=== PATIENT | female | born 1965 | race Two or more races ===

== ENCOUNTER 2025-05-31 10:39 | Inpatient (IN) | payer SELFPAY ==
[~2025-05-31] VITALS: Ht 165.1 cm; Wt 79.8 kg
[2025-05-31 10:46] VITALS: O2SAT 100
[2025-05-31 15:03] LABS: BASOPHILS % 0.4 % (0.0-2.0); EOSINOPHILS % 0.1 % (0.0-5.0); LYMPHOCYTES % 7.1 % (20.0-50.0); MEAN PLATELET VOLUME 7.1 fl (7.4-10.4); MONOCYTES % 5.4 % (2.0-8.0); NEUTROPHILS % 87.0 % (40.0-76.0); RED BLOOD CELL COUNT 3.00 mill/uL (4.2-5.4); RED CELL DISTRIBUTION WIDTH 21.1 % (11.6-14.6)
[2025-05-31 15:19] LABS: CREATININE 0.7 mg/dL (0.6-1.0)
[2025-05-31 15:20] LABS: PROTEIN TOTAL 7.6 g/dL (6.0-8.3); UREA NITROGEN BLOOD 13 mg/dL (9-23)
[2025-05-31 15:21] LABS: ASPARTATE AMINOTRANSFERASE 10 IU/L (<34)
[2025-05-31 15:22] LABS: BILIRUBIN DIRECT 0.1 mg/dL (<=3.0); BILIRUBIN TOTAL 0.4 mg/dL (0.1-1.0)
[2025-05-31 15:27] LABS: ADD RBC MORPHOLOGY YES; HEMATOCRIT. 18.4 % (36.0-48.0); HEMOGLOBIN. 4.7 g/dL (12.0-16.0); PLATELET 1142 x1000/uL (130-400)
[2025-05-31 16:49] LABS: PLATELET ESTIMATE MARKEDLY INCREASED
[2025-05-31] MEDS: PIPERACILLIN/TAZO 3.375G/50ML 50 ML IV STA (17:47)
[2025-05-31 19:05] LABS: CLARITY URINE CLEAR (CLEAR); GLUCOSE URINE NEGATIVE (NEGATIVE); KETONES URINE 1+ (NEGATIVE); LEUKOCYTE ESTERASE URINE NEGATIVE (NEGATIVE); NITRITE URINE NEGATIVE (NEGATIVE); OCCULT BLOOD URINE NEGATIVE (NEGATIVE); PH URINE 5.5 (4.5-8.0); PROTEIN URINE 2+ (NEGATIVE); SPECIFIC GRAVITY URINE 1.060 (1.005-1.030); UROBILINOGEN URINE 1.0 E.U./dL (0.2-1.0)
[2025-05-31 19:26] LABS: COLOR URINE YELLOW (YELLOW)
[2025-05-31 19:27] LABS: BACTERIA URINE TRACE; MUCUS URINE TRACE /lpf (< = 2+); RBC URINE NONE SEEN /hpf (0-2); SQUAMOUS EPITHELIAL CELL URINE FEW /lpf (RARE/1+); WBC URINE 0-2 /hpf (0-2)
[2025-05-31] MEDS ORDERED: ACETAMINOPHEN 325MG TABLET PO PRN (20:45)
[2025-05-31] MEDS ORDERED: IPRATROPIUM/ALBUTEROL 0.5-3(2.5)MG/3ML NEB HHN PRN (20:45)
[2025-05-31] MEDS ORDERED: GUAIFENESIN 200MG/10ML SUGAR FREE UDC PO PRN (20:45)
[2025-05-31] MEDS ORDERED: DOCUSATE SODIUM 100MG CAPSULE PO PRN (20:45)
[2025-05-31] MEDS ORDERED: ONDANSETRON HCL 4MG/2ML INJ IV PRN (20:45)
[2025-05-31] MEDS: VANCOMYCIN 1G PREMIX 200 ML IV STA (20:56)
[2025-05-31] MEDS: CLONIDINE 0.1MG TABLET PO PRN (21:12)
[2025-05-31] MEDS: POTASSIUM CHLORIDE 20MEQ/PACKET PO NR (21:12)
[2025-05-31] MEDS ORDERED: ACETAMINOPHEN 1000MG/100ML 100 ML IV PRN (21:45)
[2025-05-31] MEDS ORDERED: KETOROLAC 15MG/ML VIAL IV PRN (21:45)
[2025-05-31] MEDS: ACETAMINOPHEN 325MG TABLET PO PRN (23:15)
[2025-05-31 23:29] LABS: INR 1.2
[2025-05-31] MEDS: IOHEXOL-300 100 ML BOTTLE ONE (23:32)
[2025-05-31 23:33] LABS: LACTATE DEHYDROGENASE 138 IU/L (120-246)
[2025-05-31 23:34] LABS: PHOSPHORUS 3.4 mg/dL (2.5-4.9)
[2025-06-01] VITALS (56 sets, daily range): BP systolic 110–169; BP diastolic 72–146; PULSE 72–94; RESP 15–26; TEMP 36.6404–37.6; O2SAT 97–100
[2025-06-01 00:52] LABS: TROPONIN I HIGH SENSITIVITY 18 ng/L (3.0-34)
[2025-06-01] MEDS: PANTOPRAZOLE SODIUM 40 MG/VIAL IV SCH (02:52)
[2025-06-01 04:46] LABS: BASOPHILS % 0.2 % (0.0-2.0); EOSINOPHILS % 1.0 % (0.0-5.0); HEMATOCRIT. 24.1 % (36.0-48.0); HEMOGLOBIN. 7.3 g/dL (12.0-16.0); LYMPHOCYTES % 8.2 % (20.0-50.0); MEAN PLATELET VOLUME 6.8 fl (7.4-10.4); MONOCYTES % 9.5 % (2.0-8.0); NEUTROPHILS % 81.1 % (40.0-76.0); PLATELET 822 x1000/uL (130-400); RED BLOOD CELL COUNT 3.50 mill/uL (4.2-5.4); RED CELL DISTRIBUTION WIDTH 27.8 % (11.6-14.6)
[2025-06-01 04:59] LABS: CREATININE 0.6 mg/dL (0.6-1.0); TRIGLYCERIDE 109 mg/dL (0-150); TROPONIN I HIGH SENSITIVITY 17 ng/L (3.0-34); UREA NITROGEN BLOOD 16 mg/dL (9-23)
[2025-06-01 05:00] LABS: LDL CHOLESTEROL 63 mg/dL (5-100)
[2025-06-01 05:01] LABS: PHOSPHORUS 3.4 mg/dL (2.5-4.9)
[2025-06-01 05:04] LABS: T4 FREE 0.97 ng/dL (0.89-1.76)
[2025-06-01 06:20] LABS: ERYTHROCYTE SEDIMENTATION RATE 84 mm/hr (0-30)
[2025-06-01 07:17] LABS: HEPATITIS A AB IGM NEGATIVE (Negative)
[2025-06-01 07:18] LABS: HEPATITIS B CORE AB IGM NEGATIVE (Negative); HEPATITIS C AB NON REACTIVE (Neg) (Negative)
[2025-06-01] MEDS ORDERED: VANCOMYCIN 1G PREMIX 200 ML IV SCH (09:00)
[2025-06-01] MEDS ORDERED: VANCOMYCIN 1GM/200ML PMX (BAXTER) IV SCH (09:00)
[2025-06-01 10:56] LABS: *AMPHETAMINES SCREEN URINE NEGATIVE (NEGATIVE); *BARBITURATES SCREEN URINE NEGATIVE (NEGATIVE); *BENZODIAZEPINES SCREEN URINE NEGATIVE (NEGATIVE); *COCAINE SCREEN URINE NEGATIVE (NEGATIVE); CANNABINOID URINE SCREEN NEGATIVE (NEGATIVE); ECSTASY MDMA SCREEN URINE NEGATIVE (NEGATIVE); METHADONE URINE SCREEN NEGATIVE (NEGATIVE); OPIATES URINE SCREEN NEGATIVE (NEGATIVE); PHENCYCLIDINE URINE SCREEN NEGATIVE (NEGATIVE)
[2025-06-01] MEDS: SODIUM CHLORIDE 0.9% 1,000 ML IV SCH (11:17)
[2025-06-01] MEDS: VANCOMYCIN 750MG PREMIX 150 ML IV SCH (11:17)
[2025-06-01] MEDS: PIPERACILLIN/TAZO 3.375G/50ML 50 ML IV SCH (13:17)
[2025-06-01] MEDS ORDERED: DIATR MEGLU/DIATRIZOATE SOLN 30ML PO SCH (15:30)
[2025-06-02] VITALS (15 sets, daily range): BP systolic 127–179; BP diastolic 76–115; PULSE 70–88; RESP 13–25; TEMP 36.6–36.9474; O2SAT 97–100
[2025-06-02 06:08] LABS: MUMPS IGG ANTIBODY < 9.0 AU/mL (Immune >10.9)
[2025-06-02 06:09] LABS: HEMATOCRIT. 28.6 % (36.0-48.0); HEMOGLOBIN. 8.5 g/dL (12.0-16.0); MEAN PLATELET VOLUME 7.0 fl (7.4-10.4); PLATELET 815 x1000/uL (130-400); RED BLOOD CELL COUNT 3.88 mill/uL (4.2-5.4); RED CELL DISTRIBUTION WIDTH 28.1 % (11.6-14.6)
[2025-06-02 06:28] LABS: CREATININE 0.5 mg/dL (0.6-1.0); UREA NITROGEN BLOOD 11 mg/dL (9-23)
[2025-06-02 06:30] LABS: PHOSPHORUS 3.0 mg/dL (2.5-4.9)
[2025-06-02 06:39] LABS: FOLIC ACID (FOLATE) SERUM 13.01 ng/mL (>5.38)
[2025-06-02 06:40] LABS: VITAMIN B12 SERUM 271 pg/mL (211-911)
[2025-06-02] MEDS ORDERED: POLYMYXIN B SULFATE 500000 UNITS/VIAL ONE (09:05)
[2025-06-02] MEDS ORDERED: LIDOCAINE HCL 1% 10 MG/ML 10ML VIAL ONE ×2 (09:06→10:03)
[2025-06-02] MEDS ORDERED: BUPIVACAINE HCL/PF 0.5% (5MG/ML) 10ML ONE (09:06)
[2025-06-02 09:07] LABS: HAPTOGLOBIN 543 mg/dL (33-346)
[2025-06-02] MEDS: DEXT 5%/0.45% NACL 500ML 500 ML IV ONE (10:00)
[2025-06-02] MEDS ORDERED: ACETAMINOPHEN 1000MG/100ML 100 ML IV ONE (12:55)
[2025-06-02] MEDS ORDERED: PROPOFOL 200MG/20ML VIAL IV ONE (13:04)
[2025-06-02] MEDS ORDERED: FENTANYL CITRATE/PF 50MCG/ML 2ML VIAL ONE (13:05)
[2025-06-02] MEDS ORDERED: MIDAZOLAM HCL 2 MG/2 ML VIAL ONE (13:06)
[2025-06-02 13:11] LABS: ANTI-JO 1 ABS <0.2 AI (0.0-0.9)
[2025-06-02] MEDS ORDERED: ONDANSETRON HCL 4MG/2ML INJ ONE (13:25)
[2025-06-02] MEDS ORDERED: METOCLOPRAMIDE HCL 10MG/2ML VIAL ONE (13:25)
[2025-06-02] MEDS ORDERED: ONDANSETRON HCL 4MG/2ML INJ IV PRN (13:30)
[2025-06-02] MEDS ORDERED: HYDROMORPHONE HCL/PF 1MG/ML INJ IV PRN (13:30)
[2025-06-02] MEDS: VANCOMYCIN 1.25GM/250ML 250 ML IV SCH (14:00)
[2025-06-02] MEDS: MAGNESIUM 2 G PREMIX 50 ML IV NR ×2 (14:30→14:44)
[2025-06-02 15:01] LABS: LYMPHOCYTES % MANUAL 5.0 % (20.0-60.0); MONOCYTES % MANUAL 6.0 % (2.0-8.0); NEUTROPHILS % MANUAL 89.0 % (45.0-75.0)
[2025-06-02 15:02] LABS: PLATELET ESTIMATE MARKEDLY INCREASED
[2025-06-02] MEDS: DIATR MEGLU/DIATRIZOATE SOLN 30ML PO NR (16:03)
[2025-06-02] MEDS: CYANOCOBALAMIN 1000MCG/ML VIAL IM SCH (17:51)
[2025-06-02] MEDS: AMLODIPINE 5MG TABLET PO SCH (21:13)
[2025-06-02] MEDS: HYDRALAZINE 20MG/ML VIAL IV PRN (23:15)
[2025-06-02] MEDS ORDERED: IOHEXOL-300 100 ML BOTTLE ONE (23:32)
[2025-06-03] VITALS (9 sets, daily range): BP systolic 128–176; BP diastolic 71–115; PULSE 79–95; RESP 16–27; TEMP 35.8–37; O2SAT 95–100
[2025-06-03 06:50] LABS: BASOPHILS % 0.2 % (0.0-2.0); EOSINOPHILS % 0.9 % (0.0-5.0); HEMATOCRIT. 27.1 % (36.0-48.0); HEMOGLOBIN. 8.4 g/dL (12.0-16.0); LYMPHOCYTES % 7.5 % (20.0-50.0); MEAN PLATELET VOLUME 7.0 fl (7.4-10.4); MONOCYTES % 8.2 % (2.0-8.0); NEUTROPHILS % 83.2 % (40.0-76.0); PLATELET 705 x1000/uL (130-400); RED BLOOD CELL COUNT 3.77 mill/uL (4.2-5.4); RED CELL DISTRIBUTION WIDTH 27.9 % (11.6-14.6)
[2025-06-03 07:27] LABS: CREATININE 0.5 mg/dL (0.6-1.0); UREA NITROGEN BLOOD 9 mg/dL (9-23)
[2025-06-03 07:29] LABS: PHOSPHORUS 2.9 mg/dL (2.5-4.9)
[2025-06-03] MEDS ORDERED: POTASSIUM CHLORIDE 40 MEQ in DEXT 5% WATER 230 ML IV ONE (10:00)
[2025-06-03] MEDS: POTASSIUM CHLORIDE 20MEQ TABLET SR PO NR (10:20)
[2025-06-03] MEDS: KCL 20MEQ/100ML X 2 FOR TOTAL KCL 40MEQ/200ML IV SCH (10:22)
[2025-06-03] MEDS: METOCLOPRAMIDE HCL 10MG/2ML VIAL IV SCH (13:54)
[2025-06-03] MEDS: SORBITOL 70% SOLN 30ML PO SCH (14:29)
[2025-06-04] VITALS: BP 156/82; PULSE 87; RESP 19; TEMP 36.3; O2SAT 98
[2025-06-04] MEDS: VANCOMYCIN 1GM PMX (XELLIA) 200 ML IV SCH (00:10)
[2025-06-04 04:27] VITALS: BP 126/57; PULSE 80; RESP 18; TEMP 36.3; O2SAT 100
[2025-06-04 08:38] LABS: CREATININE 0.4 mg/dL (0.6-1.0); UREA NITROGEN BLOOD 7 mg/dL (9-23)
[2025-06-04 08:50] LABS: INR 1.1
[2025-06-04 09:11] LABS: COMPLEMENT C3 117 mg/dL (82-167); COMPLEMENT C4 31 mg/dL (12-38)
[2025-06-04 09:15] LABS: BASOPHILS % 0.5 % (0.0-2.0); EOSINOPHILS % 1.1 % (0.0-5.0); HEMATOCRIT. 25.0 % (36.0-48.0); HEMOGLOBIN. 7.4 g/dL (12.0-16.0); LYMPHOCYTES % 11.8 % (20.0-50.0); MEAN PLATELET VOLUME 6.9 fl (7.4-10.4); MONOCYTES % 11.8 % (2.0-8.0); NEUTROPHILS % 74.8 % (40.0-76.0); PLATELET 640 x1000/uL (130-400); RED BLOOD CELL COUNT 3.42 mill/uL (4.2-5.4); RED CELL DISTRIBUTION WIDTH 29.3 % (11.6-14.6)
[2025-06-04] MEDS ORDERED: SORBITOL 70% SOLN 30ML PO PRN (09:45)
[2025-06-04] MEDS ORDERED: PROPOFOL 200MG/20ML VIAL IV ONE (11:55)
[2025-06-04 12:00] VITALS: BP 119/76; PULSE 94; RESP 16; TEMP 36.4; O2SAT 97
[2025-06-04 13:12] LABS: SJOGRENS ANTI SS-A < 0.2 AI (0.0-0.9); SJOGRENS ANTI SS-B < 0.2 AI (0.0-0.9)
[2025-06-04 16:00] VITALS: BP 117/69; PULSE 93; RESP 17; TEMP 36.1; O2SAT 98
[2025-06-04 20:00] VITALS: BP 174/92; PULSE 84; RESP 20; TEMP 36.3; O2SAT 100
[2025-06-05] VITALS: BP 185/93; PULSE 88; RESP 19; TEMP 36.3; O2SAT 99
[2025-06-05 04:00] VITALS: BP 143/72; PULSE 79; RESP 18; TEMP 36.3; O2SAT 97
[2025-06-05] MEDS ORDERED: LORAZEPAM 2MG/ML UD SYRINGE IV NR (04:00)
[2025-06-05 07:25] LABS: CREATININE 0.5 mg/dL (0.6-1.0); UREA NITROGEN BLOOD < 5 mg/dL (9-23)
[2025-06-05 08:00] VITALS: BP 134/111; PULSE 77; RESP 20; TEMP 36.3; O2SAT 97
[2025-06-05 12:00] VITALS: BP 164/87; PULSE 82; RESP 20; TEMP 36.4; O2SAT 96
[2025-06-05] MEDS: POTASSIUM CHLORIDE 20MEQ TABLET SR PO NR (14:34)
[2025-06-05 16:00] VITALS: BP 170/90; PULSE 94; RESP 19; TEMP 36.6; O2SAT 97
[2025-06-05 19:08] LABS: ANGIOTENSION CONVERTING ENZYME 12 U/L (14-82)
[2025-06-05 20:00] VITALS: BP 130/69; PULSE 88; RESP 18; TEMP 36.6; O2SAT 100
[2025-06-06] VITALS: BP 144/79; PULSE 84; RESP 18; TEMP 36.6; O2SAT 98
[2025-06-06 04:00] VITALS: BP 136/73; PULSE 75; RESP 19; TEMP 36.7; O2SAT 96
[2025-06-06 08:00] VITALS: BP 160/93; PULSE 80; RESP 18; TEMP 36.9; O2SAT 98
[2025-06-06 12:00] VITALS: BP 163/86; PULSE 88; RESP 18; TEMP 36.9; O2SAT 100
[2025-06-06 15:10] LABS: ANTI-MYELOPEROXIDASE AB 0.2 units (0.0-0.9); ANTI-PROTEINASE 3 ABS 0.4 units (0.0-0.9)
[2025-06-06 16:00] VITALS: BP 180/86; PULSE 83; RESP 17; TEMP 37.1; O2SAT 100
[2025-06-06] MEDS: LEVOFLOXACIN 500MG TABLET PO SCH (20:39)
[2025-06-06] MEDS: METRONIDAZOLE 500MG TABLET PO SCH (22:00)
[2025-06-07 08:00] VITALS: BP 158/86; PULSE 95; RESP 18; TEMP 36.6; O2SAT 100
[2025-06-07 10:07] LABS: B HENSELAE IGG Negative titer (Neg:<1:320); B HENSELAE IGM Negative titer (Neg:<1:100); B QUINTANA IGG Negative titer (Neg:<1:320); B QUINTANA IGM Negative titer (Neg:<1:100)
[2025-06-07 12:00] VITALS: BP 165/88; PULSE 98; RESP 18; TEMP 36; O2SAT 100
[2025-06-07] MEDS ORDERED: METR-167 PO (14:47)
[2025-06-07] MEDS ORDERED: LOSA25TA26 PO (14:47)
[2025-06-07] MEDS ORDERED: LEVO-65 PO (14:47)
[2025-06-07] MEDS ORDERED: SULF1TAB48 PO (14:47)
[2025-06-07] MEDS ORDERED: AMLO5TAB88 PO (14:47)
[2025-06-07] MEDS ORDERED: SUCR1TAB30 PO (14:56)
[2025-06-07] MEDS ORDERED: OMEP40CA20 PO (14:56)
[2025-06-07] MEDS: AMLODIPINE 5MG TABLET PO NR (15:10)
[2025-06-07 16:00] VITALS: BP 144/79; PULSE 99; RESP 17; TEMP 36.6; O2SAT 100
[2025-06-07] MEDS: SULFAMETHOXAZOLE/TRIMETHOPRIM 800/160MG TABLET PO SCH (17:20)
[2025-06-07 17:53] LABS: BASOPHILS % 0.1 % (0.0-2.0); EOSINOPHILS % 1.5 % (0.0-5.0); HEMATOCRIT. 25.2 % (36.0-48.0); HEMOGLOBIN. 7.7 g/dL (12.0-16.0); LYMPHOCYTES % 8.2 % (20.0-50.0); MEAN PLATELET VOLUME 6.2 fl (7.4-10.4); MONOCYTES % 13.2 % (2.0-8.0); NEUTROPHILS % 77.0 % (40.0-76.0); PLATELET 592 x1000/uL (130-400); RED BLOOD CELL COUNT 3.49 mill/uL (4.2-5.4); RED CELL DISTRIBUTION WIDTH 29.6 % (11.6-14.6)
[2025-06-07 18:06] LABS: CREATININE 0.5 mg/dL (0.6-1.0); UREA NITROGEN BLOOD 6 mg/dL (9-23)
[2025-06-07 20:00] VITALS: PULSE 85; RESP 17; TEMP 36.8; O2SAT 98
[2025-06-07] MEDS: LOSARTAN 25 MG TABLET PO SCH (22:26)
[2025-06-08] VITALS (7 sets, daily range): BP systolic 120–167; BP diastolic 61–90; PULSE 73–98; RESP 17–20; TEMP 35.7–36.8; O2SAT 96–99
[2025-06-08] MEDS: AMLODIPINE 5MG TABLET PO SCH (10:32)
[2025-06-08] MEDS: SUCRALFATE 1G TABLET PO SCH (10:32)
[2025-06-08] MEDS: POTASSIUM CHLORIDE 20MEQ TABLET SR PO NR (10:36)
[2025-06-08] MEDS: PANTOPRAZOLE SODIUM 40 MG/VIAL IV SCH (10:44)
[2025-06-08] MEDS: KCL 20MEQ/100ML PREMIX 100 ML IV SCH (10:44)
[2025-06-08 17:10] LABS: ATYPICAL P-ANCA <1:20 titer (Neg:<1:20); CYTOPLASMIC C-ANCA <1:20 titer (Neg:<1:20); PERINUCLEAR P-ANCA <1:20 titer (Neg:<1:20)
[2025-06-08 19:06] LABS: ANA IFA Negative (.)
== END 2025-06-08 19:25 | disposition home or self-care (01) | DRG 241 ==
LOC: ER 10:39 → 5EST 18:13 → EDBEDREQ 18:16 → EDBEDREQTM 18:16 → EDBEDREQSVC 06-01 05:39 → ENRESERV 06-01 06:20 → 6WST 06-03 18:50
PROVIDERS: ADMIT Internal Medicine; ATTEND Internal Medicine
PROC: 30233N1 Transfusion of Nonautologous Red Blood Cells into Peripheral Vein, Percutaneous Approach (ICD-10-PCS; principal; 2025-05-31)
PROC: 0H9DXZX Drainage of Right Lower Arm Skin, External Approach, Diagnostic (ICD-10-PCS; 2025-06-02)
PROC: 0DB78ZX Excision of Stomach, Pylorus, Via Natural or Artificial Opening Endoscopic, Diagnostic (ICD-10-PCS; 2025-06-04)
PROC: 0DJD8ZZ Inspection of Lower Intestinal Tract, Via Natural or Artificial Opening Endoscopic (ICD-10-PCS; 2025-06-04)
DX: K29.81 Duodenitis with bleeding (principal); K57.33 Diverticulitis of large intestine without perforation or abscess with bleeding; K51.511 Left sided colitis with rectal bleeding; I16.0 Hypertensive urgency; K11.3 Abscess of salivary gland; L03.113 Cellulitis of right upper limb; L02.413 Cutaneous abscess of right upper limb; D50.9 Iron deficiency anemia, unspecified; E11.65 Type 2 diabetes mellitus with hyperglycemia; M35.00 Sjogren syndrome, unspecified; E04.2 Nontoxic multinodular goiter; K27.9 Peptic ulcer, site unspecified, unspecified as acute or chronic, without hemorrhage or perforation; D25.9 Leiomyoma of uterus, unspecified; D75.839 Thrombocytosis, unspecified; K11.20 Sialoadenitis, unspecified; E87.6 Hypokalemia; E53.8 Deficiency of other specified B group vitamins; K80.20 Calculus of gallbladder without cholecystitis without obstruction; K29.50 Unspecified chronic gastritis without bleeding; K11.6 Mucocele of salivary gland; Z79.899 Other long term (current) drug therapy
CPT/HCPCS: 36415; 36573; 70491; 71260; 73110; 74177; 76705; 80048; 80061; 80076; 80202; 80305; 81003; 82040; 82150; 82164; 82270; 82378; 82550; 82607; 82728; 82746; 82962; 83036; 83520; 83540; 83550; 83605; 83615; 83735; 84100; 84132; 84145; 84439; 84443; 84484; 84550; 85014; 85018; 85025; 85044; 85651; 86038; 86160; 86235; 86256; 86332; 86430; 86611; 86644; 86705; 86709; 86735; 86850; 86880; 86900; 86920; 87070; 87075; 87340; 88305; 93005; 93970; 96365; 96366; 97162; 97166; 97530; 99285; A4606; A4615; C1725; J0360; J0665; J2003; J2250; J2405; J2470; J2543; J2704; J2765; J3010; J3373; J3420; J3475; J3480; J3490; J7030; P9016; Q9963; Q9967; J0131